=== PATIENT | female | born 1965 | race Caucasian/White ===

== ENCOUNTER 2018-01-08 08:54 | Emergency (ER) | payer OTHER ==
[~2018-01-08] VITALS: Ht 152.4 cm; Wt 56.7 kg
[2018-01-08] MEDS ORDERED: CIPRO500 MG (10:05)
[2018-01-08] MEDS ORDERED: CIPRO100 MG PO (16:34)
[2018-01-08] MEDS ORDERED: INTESTINEX680 M1 PO (16:34)
[2018-01-08] MEDS ORDERED: PEPCID AC20 MG PO (16:34)
[2018-01-08] MEDS ORDERED: METRONIDAZOLE500 MG PO (16:34)
[2018-01-08] MEDS ORDERED: LEVSIN/SL0.125 MG PO (16:34)
[2018-01-08] MEDS ORDERED: KETO10TA2 PO (16:34)
== END 2018-01-08 18:19 | disposition home or self-care (01) ==
LOC: ER 08:54
DX: K57.32 Diverticulitis of large intestine without perforation or abscess without bleeding (principal); R10.32 Left lower quadrant pain

== ENCOUNTER 2018-04-28 07:51 | Inpatient (IN) | payer OTHER ==
[~2018-04-28] VITALS: Ht 152.4 cm; Wt 56.7 kg
[~2018-04-28 07:51] MED LIST: CIPRO100 MG PO; CIPRO500 MG; INTESTINEX680 M1 PO; KETO10TA2 PO; LEVSIN/SL0.125 MG PO; METRONIDAZOLE500 MG PO; PEPCID AC20 MG PO
[2018-04-28] MEDS ORDERED: FLAGYL500MG (08:10)
== END 2018-05-01 18:22 | disposition home or self-care (01) | DRG 392 ==
LOC: ER 07:51 → MEDJ 20:38
PROC: BW25YZZ Computerized Tomography (CT Scan) of Chest, Abdomen and Pelvis using Other Contrast (ICD-10-PCS; principal; 2018-04-28)
PROC: BW40ZZZ Ultrasonography of Abdomen (ICD-10-PCS; 2018-04-28)
DX: K57.32 Diverticulitis of large intestine without perforation or abscess without bleeding (principal)